=== PATIENT | male | born 1990 | race Two or more races ===

== ENCOUNTER 2017-05-23 19:22 | Inpatient (IN) | payer SELFPAY ==
[~2017-05-23] VITALS: Ht 175.3 cm; Wt 99.3 kg
[2017-05-23 19:49] LABS: BASO # 0.2 x10^3/uL (0.0-0.2); BASO % 2 % (0-3); EOS % 7 % (0-3); LYMPH # 2.6 x10^3/uL (1.0-4.8); LYMPH % 25 % (24-48); MEAN CORPUSCULAR HEMOGLOBIN 19 pg (25-35); MEAN CORPUSCULAR HGB CONC 32 g/dL (31-37); MEAN CORPUSCULAR VOLUME 58 fL (79-100); MONO % 6 % (0-9); NEUT % 60 % (31-73); PLATELET COUNT 365 x10^3/uL (140-400); RED BLOOD COUNT 3.26 x10^6/uL (4.30-5.70); RED CELL DISTRIBUTION WIDTH 18.5 % (11.5-14.5); WHITE BLOOD COUNT 10.3 x10^3/uL (4.0-11.0)
[2017-05-23 19:50] LABS: BILIRUBIN,URINE NEGATIVE (NEG); GLUCOSE,URINE NEGATIVE (NEG); NITRITE,URINE NEGATIVE (NEG); PH,URINE 6.5; PROTEIN,URINE NEGATIVE (NEG-TRACE); UROBILINOGEN,URINE 0.2 mg/dL (0.2 mg/dL)
[2017-05-23 19:54] LABS: HEMOGLOBIN 6.1 g/dL (13.0-17.5)
[2017-05-23 19:58] LABS: CALCIUM 8.2 mg/dL (8.5-10.1); CREATININE 0.9 mg/dL (0.7-1.3); GFR 100.5; POTASSIUM 3.8 mmol/L (3.5-5.1); RBC,URINE 0 /HPF (0-2); WBC,URINE 0 /HPF (0-4)
[2017-05-23 19:59] LABS: BACTERIA,URINE 0 /HPF (0-FEW); SQUAMOUS EPITHELIAL CELL,UR OCC /LPF
[2017-05-23 20:00] LABS: INR 1.1 (0.8-1.1); PROTHROMBIN TIME PATIENT 13.4 SEC (11.7-14.0)
[2017-05-23 20:04] LABS: ALBUMIN 3.7 g/dL (3.4-5.0); ALBUMIN/GLOBULIN RATIO 0.9 (1.0-1.7); TOTAL BILIRUBIN 0.3 mg/dL (0.2-1.0); TOTAL PROTEIN 7.9 g/dL (6.4-8.2)
[2017-05-23 20:15] LABS: PLT ESTIMATE ADEQUATE (ADEQUATE)
[2017-05-23] MEDS ORDERED: IV NORMAL SALINE 500ML BAG 500 ML IV ONE (20:15)
[2017-05-23 20:17] LABS: HYPOCHROMIA MARKED; MICROCYTOSIS MARKED; POLYCHROMASIA MOD
[2017-05-23] MEDS: IV NORMAL SALINE 1000ML BAG 1,000 ML IV SCH (21:16)
--- NOTE | 2017-05-23 21:44 | PHYS DOC ---
Past Medical History Past Medical History: No Pertinent History Past Surgical History: Other Additional Past Surgical Histo: Left hand Alcohol Use: Occasionally Drug Use: None Adult General Chief Complaint Chief Complaint: OTHER COMPLAINTS HPI HPI Patient is a 26 year old male who presents ambulatory to the ED with the complaint of abnormal labs. 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 Patient states that he has been having bright red blood per rectum every day for about 2 months. He has not gone to the doctor because he was scared to. He went to the doctor today and had labs drawn and told him there was a problem with his blood, he would need to have a blood transfusion, and he should come to the hospital. This happened once before about 6 months ago that then didn't come back until 2 months ago. He has bright red blood and blood clots per rectum daily. He has no abdominal pain or rectal pain. He has nausea but no vomiting. He feels faint especially when he is working. He denies any chronic medical problems. He does not take any medications. He does not have a primary care doctor, he went to a local urgent care I believe. Review of Systems Review of Systems Constitutional: Denies fever or chills [] HENT: Denies nasal congestion or sore throat [] Respiratory: Denies cough or shortness of breath [] Cardiovascular: Denies chest pain GI: As in history of present illness : Denies dysuria or hematuria [] Musculoskeletal: Denies back pain or joint pain [] Integument: Denies rash or skin lesions [] Neurologic: Denies headache, focal weakness or sensory changes [] Allergies Allergies Allergies Coded Allergies Type Severity Reaction Last Updated Verified No Known Drug Allergies 05/23/17 No Physical Exam Physical Exam Constitutional: Well developed, well nourished, no acute distress, non-toxic appearance. Alert, mentating normally, warm and dry. HENT: Normocephalic, atraumatic, bilateral external ears normal, nose normal. [ ] Eyes: conjunctiva normal, no discharge. [] Neck: Normal range of motion, no stridor. [] Cardiovascular:Heart rate regular rhythm, no murmur [] Lungs & Thorax: Bilateral breath sounds clear to auscultation [] Abdomen: Bowel sounds normal, soft, nondistended, no tenderness, no masses, no pulsatile masses. [] Skin: Warm, dry, no erythema, no rash. [] Extremities: No tenderness, no cyanosis, no clubbing, ROM intact, no edema. [] Neurologic: Alert and oriented X 3, normal motor function, normal sensory function, no focal deficits noted. [] Current Patient Data Vital Signs Vital Signs Date Time Temp Pulse Resp B/P (MAP) Pulse Ox O2 Delivery O2 Flow Rate FiO2 05/23/17 19:30 98.4 94 18 155/90 (111) 99 Room Air 98.4 Lab Values Laboratory Tests Test 05/23/17 19:34 White Blood Count 10.3 x10^3/uL (4.0-11.0) Red Blood Count 3.26 x10^6/uL (4.30-5.70) L Hemoglobin 6.1 g/dL (13.0-17.5) *L Hematocrit 18.8 % (39.0-53.0) *L Mean Corpuscular Volume 58 fL (79-100) L Mean Corpuscular Hemoglobin 19 pg (25-35) L Mean Corpuscular Hemoglobin Concent 32 g/dL (31-37) Red Cell Distribution Width 18.5 % (11.5-14.5) H Platelet Count 365 x10^3/uL (140-400) Neutrophils (%) (Auto) 60 % (31-73) Lymphocytes (%) (Auto) 25 % (24-48) Monocytes (%) (Auto) 6 % (0-9) Eosinophils (%) (Auto) 7 % (0-3) H Basophils (%) (Auto) 2 % (0-3) Neutrophils # (Auto) 6.2 x10^3uL (1.8-7.7) Lymphocytes # (Auto) 2.6 x10^3/uL (1.0-4.8) Monocytes # (Auto) 0.6 x10^3/uL (0.0-1.1) Eosinophils # (Auto) 0.7 x10^3/uL (0.0-0.7) Basophils # (Auto) 0.2 x10^3/uL (0.0-0.2) Platelet Estimate Adequate (ADEQUATE) Polychromasia Mod Hypochromasia Marked Microcytosis Marked Prothrombin Time 13.4 SEC (11.7-14.0) Prothrombin Time INR 1.1 (0.8-1.1) PTT 22 SEC (24-38) L Urine Collection Type Unknown Urine Color Yellow Urine Clarity Clear Urine pH 6.5 Urine Specific [place] <=1.005 Urine Protein Negative mg/dL (NEG-TRACE) Urine Glucose (UA) Negative mg/dL (NEG) Urine Ketones (Stick) Negative mg/dL (NEG) Urine Blood Negative (NEG) Urine Nitrite Negative (NEG) Urine Bilirubin Negative (NEG) Urine Urobilinogen Dipstick 0.2 mg/dL (0.2 mg/dL) Urine Leukocyte Esterase Negative (NEG) Urine RBC 0 /HPF (0-2) Urine WBC 0 /HPF (0-4) Urine Squamous Epithelial Cells Occ /LPF Urine Bacteria 0 /HPF (0-FEW) Sodium Level 137 mmol/L (136-145) Potassium Level 3.8 mmol/L (3.5-5.1) Chloride Level 101 mmol/L (98-107) Carbon Dioxide Level 26 mmol/L (21-32) Anion Gap 10 (6-14) Blood Urea Nitrogen 10 mg/dL (8-26) Creatinine 0.9 mg/dL (0.7-1.3) Estimated GFR (Cockcroft-Gault) 100.5 BUN/Creatinine Ratio 11 (6-20) Glucose Level 127 mg/dL (70-99) H Calcium Level 8.2 mg/dL (8.5-10.1) L Total Bilirubin 0.3 mg/dL (0.2-1.0) Aspartate Amino Transferase (AST) 24 U/L (15-37) Alanine Aminotransferase (ALT) 43 U/L (16-63) Alkaline Phosphatase 114 U/L (46-116) Total Protein 7.9 g/dL (6.4-8.2) Albumin 3.7 g/dL (3.4-5.0) Albumin/Globulin Ratio 0.9 (1.0-1.7) L Laboratory Tests 05/23/17 19:34 Laboratory Tests 05/23/17 19:34 EKG EKG [] Radiology/Procedures Radiology/Procedures [] Course & Med Decision Making Course & Med Decision Making Pertinent Labs and Imaging studies reviewed. (See chart for details) 26-year-old healthy male presents to the ED with a 2 month history of bright red blood per rectum and abnormal labs. In the ED, his hemoglobin is 6.1. White count, platelets, chemistries are all unremarkable. The patient does give a history of active rectal bleeding so I believe he should be transfused. I discussed transfusion with the patient and consented him for blood transfusion. I ordered 2 units. I believe his bleeding is lower GI so a PPI will not be of benefit. There is no indication at this time of what would be causing his bleeding. Patient is stable for admission to [facility] floor. I discussed the case with who will admit the patient. I wrote bridge orders. [] Dragon Disclaimer Dragon Disclaimer This electronic medical record was generated, in whole or in part, using a voice recognition dictation system. Departure Departure Impression: Primary Impression: Lower GI bleed Additional Impression: Anemia due to blood loss Disposition: ADMITTED INPATIENT Admitting Physician: Yolanda Randall Condition: STABLE Referrals: UNKNOWN PCP NAME (PCP) Problem Qualifiers GEOVANY FRENCH MD May 23, 2017 21:44
[2017-05-23 23:00] VITALS: BP 120/72
[2017-05-23 23:09] VITALS: BP 120/72
[2017-05-24] VITALS (15 sets, daily range): BP systolic 114–138; BP diastolic 66–80
--- NOTE | 2017-05-24 06:51 | EKG ---
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
[2017-05-24] MEDS: IV NORMAL SALINE 1000ML BAG 1,000 ML IV SCH ×2 (06:54→16:09)
[2017-05-24 07:30] LABS: BASO # 0.1 x10^3/uL (0.0-0.2); BASO % 1 % (0-3); EOS % 10 % (0-3); HEMATOCRIT 23.9 % (39.0-53.0); HEMOGLOBIN 7.3 g/dL (13.0-17.5); LYMPH # 1.6 x10^3/uL (1.0-4.8); LYMPH % 23 % (24-48); MEAN CORPUSCULAR HEMOGLOBIN 19 pg (25-35); MEAN CORPUSCULAR HGB CONC 31 g/dL (31-37); MEAN CORPUSCULAR VOLUME 63 fL (79-100); MONO % 8 % (0-9); NEUT % 58 % (31-73); PLATELET COUNT 296 x10^3/uL (140-400); RED CELL DISTRIBUTION WIDTH 24.2 % (11.5-14.5); WHITE BLOOD COUNT 7.1 x10^3/uL (4.0-11.0)
[2017-05-24 07:44] LABS: CALCIUM 8.6 mg/dL (8.5-10.1); CREATININE 0.9 mg/dL (0.7-1.3); GFR 100.5
[2017-05-24 07:57] LABS: HEMATOCRIT 18.8 % (39.0-53.0)
[2017-05-24] MEDS ORDERED: ONDANSETRON PF 4 MG/2 ML VIAL. IV PRN (08:45)
[2017-05-24] MEDS ORDERED: ACETAMINOPHEN 500 MG TABLET PO PRN (08:45)
--- NOTE | 2017-05-24 08:57 | PDOC2 ---
GI CONSULT Reason For Consult: Lower GI Bleed HPI: HPI: 26 y/o male admitted through the ER. Speaks British primarily but Niuean language skills adequate for interview. 2 month h/o rectal bleeding, red mixed w/ black blood, occurs several times daily, amount varies. Denies n/v, reflux/ heartburn, dysphagia, abd pain, change in appetite, weight loss, constipation, diarrhea. Has felt a little dizzy w/o CP or SOA. No NSAID use. No previous EGD or colonoscopy. Drinks 24 beers one day each week. 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 Labs: Hgb 6.1 now 7.3 s/p transfusion 2 units pRBCs. Note low indices w/ elevated RDW. CMP unremarkable except for elevated glucose (127, 111). INR WNL. Vitals stable, has been NPO. PMH: PMH: left hand trauma/surgery FH: Family History: No pertinent hx (denies GI cancers, IBD) Social History: Smoke: No ALCOHOL: heavy (24 beers one day each week) Drugs: None ROS: GEN: Denies fevers, chills, sweats HEENT: Denies blurred vision, sore throat CV: Denies chest pain RESP: Denies shortness of air, cough GI: Per HPI : Denies hematuria, dysuria ENDO: Denies weight changes NEURO: +dizziness MSK: Denies weakness, joint pain/swelling SKIN: Denies jaundice, pruritus Vitals: Vitals: Vital Signs Date Time Temp Pulse Resp B/P (MAP) Pulse Ox O2 Delivery O2 Flow Rate FiO2 05/24/17 07:00 97.9 74 18 121/72 (88) 99 Room Air 97.9 Labs: Labs: Laboratory Tests Test 05/23/17 19:34 05/24/17 07:15 White Blood Count 10.3 x10^3/uL (4.0-11.0) 7.1 x10^3/uL (4.0-11.0) Red Blood Count 3.26 x10^6/uL (4.30-5.70) 3.80 x10^6/uL (4.30-5.70) Hemoglobin 6.1 g/dL (13.0-17.5) 7.3 g/dL (13.0-17.5) Hematocrit 18.8 % (39.0-53.0) 23.9 % (39.0-53.0) Mean Corpuscular Volume 58 fL (79-100) 63 fL (79-100) Mean Corpuscular Hemoglobin 19 pg (25-35) 19 pg (25-35) Mean Corpuscular Hemoglobin Concent 32 g/dL (31-37) 31 g/dL (31-37) Red Cell Distribution Width 18.5 % (11.5-14.5) 24.2 % (11.5-14.5) Platelet Count 365 x10^3/uL (140-400) 296 x10^3/uL (140-400) Neutrophils (%) (Auto) 60 % (31-73) 58 % (31-73) Lymphocytes (%) (Auto) 25 % (24-48) 23 % (24-48) Monocytes (%) (Auto) 6 % (0-9) 8 % (0-9) Eosinophils (%) (Auto) 7 % (0-3) 10 % (0-3) Basophils (%) (Auto) 2 % (0-3) 1 % (0-3) Neutrophils # (Auto) 6.2 x10^3uL (1.8-7.7) 4.1 x10^3uL (1.8-7.7) Lymphocytes # (Auto) 2.6 x10^3/uL (1.0-4.8) 1.6 x10^3/uL (1.0-4.8) Monocytes # (Auto) 0.6 x10^3/uL (0.0-1.1) 0.5 x10^3/uL (0.0-1.1) Eosinophils # (Auto) 0.7 x10^3/uL (0.0-0.7) 0.7 x10^3/uL (0.0-0.7) Basophils # (Auto) 0.2 x10^3/uL (0.0-0.2) 0.1 x10^3/uL (0.0-0.2) Platelet Estimate Adequate (ADEQUATE) Polychromasia Mod Hypochromasia Marked Microcytosis Marked Prothrombin Time 13.4 SEC (11.7-14.0) Prothromb Time International Ratio 1.1 (0.8-1.1) Activated Partial Thromboplast Time 22 SEC (24-38) Urine Collection Type Unknown Urine Color Yellow Urine Clarity Clear Urine pH 6.5 Urine Specific [place] <=1.005 Urine Protein Negative mg/dL (NEG-TRACE) Urine Glucose (UA) Negative mg/dL (NEG) Urine Ketones (Stick) Negative mg/dL (NEG) Urine Blood Negative (NEG) Urine Nitrite Negative (NEG) Urine Bilirubin Negative (NEG) Urine Urobilinogen Dipstick 0.2 mg/dL (0.2 mg/dL) Urine Leukocyte Esterase Negative (NEG) Urine RBC 0 /HPF (0-2) Urine WBC 0 /HPF (0-4) Urine Squamous Epithelial Cells Occ /LPF Urine Bacteria 0 /HPF (0-FEW) Sodium Level 137 mmol/L (136-145) 138 mmol/L (136-145) Potassium Level 3.8 mmol/L (3.5-5.1) 4.0 mmol/L (3.5-5.1) Chloride Level 101 mmol/L (98-107) 103 mmol/L (98-107) Carbon Dioxide Level 26 mmol/L (21-32) 29 mmol/L (21-32) Anion Gap 10 (6-14) 6 (6-14) Blood Urea Nitrogen 10 mg/dL (8-26) 9 mg/dL (8-26) Creatinine 0.9 mg/dL (0.7-1.3) 0.9 mg/dL (0.7-1.3) Estimated GFR (Cockcroft-Gault) 100.5 100.5 BUN/Creatinine Ratio 11 (6-20) Glucose Level 127 mg/dL (70-99) 111 mg/dL (70-99) Calcium Level 8.2 mg/dL (8.5-10.1) 8.6 mg/dL (8.5-10.1) Total Bilirubin 0.3 mg/dL (0.2-1.0) Aspartate Amino Transf (AST/SGOT) 24 U/L (15-37) Alanine Aminotransferase (ALT/SGPT) 43 U/L (16-63) Alkaline Phosphatase 114 U/L (46-116) Total Protein 7.9 g/dL (6.4-8.2) Albumin 3.7 g/dL (3.4-5.0) Albumin/Globulin Ratio 0.9 (1.0-1.7) Allergies: Coded Allergies: No Known Drug Allergies (Unverified , 05/23/17) Medications: Current Medications Medications (Trade) Dose Ordered Sig/Santino Route PRN Reason Start Time Stop Time Status Last Admin Dose Admin Sodium Chloride 500 ml @ 500 mls/hr 1X ONCE IV 05/23/17 20:15 05/23/17 21:14 DC 05/23/17 20:07 Sodium Chloride 1,000 ml @ 100 mls/hr Q10H IV 05/23/17 20:54 05/24/17 20:53 05/23/17 21:16 Imaging: Imaging: - PE: GEN: NAD HEENT: Atraumatic, PERRL LUNGS: CTAB anteriorly HEART: RRR ABD: NABS, S/ND/NT EXTREMITY: No edema SKIN: No rashes, no jaundice NEURO/PSYCH: A & O 3 A/P: A/P: Rectal bleeding w/ microcytic anemia -onset 2 months ago, several times daily, red and black Alcohol use -- D/w Dr. Bajwa - ?colitis Will plan for CT A/P today, then prep for colonoscopy w/ EGD tomorrow morning r/ o upper and lower GI source for anemia. Will start empiric IV H2 vipul and transfuse another unit pRBCs. Encourage to minimize alcohol use. LEXI ADHIKARI May 24, 2017 08:57
--- NOTE | 2017-05-24 08:59 | PDOC1 ---
History and Physical Date of Admission Date of Admission DATE: 05/24/17 TIME: 08:45 Identification/Chief Complaint Chief Complaint Bloody stools Problems: Source Source: Caregiver, Chart review, Patient History of Present Illness History of Present Illness 26 male, some lebanese, 2 mos hx of bright red bloody stools, no abd pain, no emesis, no fevers, Never happened before, no hx colon CA in family, not on any blood thinners or NSAIDs, Hgb on admit was 6, got transfused and now hgb 7, MCV 60s, Denies lightheadedness, weakness or fatigue. CLaims feels better. HAs been NPO, IVF running, NOT hypotensive. Past Medical History Cardiovascular: No pertinent hx Pulmonary: No pertinent hx GI: No pertinent hx Heme/Onc: No pertinent hx Hepatobiliary: No pertinent hx Psych: No pertinent hx Rheumatologic: No pertinent hx Infectious disease: No pertinent hx ENT: No pertinent hx Renal/: No pertinent hx Endocrine: No pertinent hx Dermatology: No pertinent hx Past Surgical History Past Surgical History: No pertinent history Family History Family History: Family History Unknown Social History Smoke: No ALCOHOL: none Drugs: None Current Problem List Problem List Problems Medical Problems: (1) Anemia due to blood loss Status: Acute (2) Lower GI bleed Status: Acute Problems: Current Medications Current Medications Current Medications Sodium Chloride 500 ml @ 500 mls/hr 1X ONCE IV Last administered on 05/23/17 20:07; Start 05/23/17 at 20:15; Stop 05/23/17 at 21:14; Status DC Sodium Chloride 1,000 ml @ 100 mls/hr Q10H IV Last administered on 05/23/17 21 :16; Start 05/23/17 at 20:54; Stop 05/24/17 at 20:53 Allergies Allergies: Coded Allergies: No Known Drug Allergies (Unverified , 05/23/17) ROS General: No: Chills, Night Sweats, Fatigue, Malaise, Appetite, Other PSYCHOLOGICAL ROS: No: Anxiety, Behavioral Disorder, Concentration difficultie , Decreased libido, Depression, Disorientation, Hallucinations, Hostility, Irritablity, Memory difficulties, Mood Swings, Obsessive thoughts, Physical abuse, Sexual abuse, Sleep disturbances, Suicidal ideation, Other Eyes: No Blurry vision, No Decreased vision, No Double vision, No Dry eyes, No Excessive tearing, No Eye Pain, No Itchy Eyes, No Loss of vision, No Photophobia , No Scotomata, No Uses contacts, No Uses glasses, No Other HEENT: No: Heacaches, Visual Changes, Hearing change, Nasal congestion, Nasal discharge, Oral lesions, Sinus pain, Sore Throat, Epistaxis, Sneezing, Snoring, Tinnitus, Vertigo, Vocal changes, Other ALLERGY AND IMMUNOLOGY: No: Hives, Insect Bite Sensitivity, Itchy/Watery Eyes, Nasal Congestion, Post Nasal Drip, Seasonal Allergies, Other Hematological and Lymphatic: No: Bleeding Problems, Blood Clots, Blood Transfusions, Brusing, Night Sweats, Pallor, Swollen Lymph Nodes, Other ENDOCRINE: No: Breast Changes, Galactorrhea, Hair Pattern Changes, Hot Flashes , Malaise/lethargy, Mood Swings, Palpitations, Polydipsia/polyuria, Skin Changes , Temperature Intolerance, Unexpected Weight Changes, Other Breast: No New/Changing Breast Lumps, No Nipple changes, No Nipple discharge, No Other Respiratory: No: Cough, Hemoptysis, Orthopnea, Pleuritic Pain, Shortness of breath, SOB with excertion, Sputum Changes, Stridor, Tachypnea, Wheezing, Other Cardiovascular: No Chest Pain, No Palpitations, No Orthopnea, No Paroxysmal Noc. Dyspnea, No Edema, No Lt Headedness, No Other Gastrointestinal: Yes Diarrhea, Yes Hematochezia Genitourinary: No Dysuria, No Frequency, No Incontinence, No Hematuria, No Retention, No Discharge, No Urgency, No Pain, No Flank Pain, No Other, No , No , No , No , No , No , No Musculoskeletal: No Gait Disturbance, No Joint Pain, No Joint Stiffness, No Joint Swelling, No Muscle Pain, No Muscular Weakness, No Pain In:, No Swelling In:, No Other Neurological: No Behavorial Changes, No Bowel/Bladder ControlChng, No Confusion , No Dizziness, No Gait Disturbance, No Headaches, No Impaired Coord/balance, No Memory Loss, No Numbness/Tingling, No Seizures, No Speech Problems, No Tremors, No Visual Changes, No Weakness, No Other Skin: No Dry Skin, No Eczema, No Hair Changes, No Lumps, No Mole Changes, No Mottling, No Nail Changes, No Pruritus, No Rash, No Skin Lesion Changes, No Other, No Acne Physical Exam General: Alert, Oriented X3, Cooperative, No acute distress HEENT: Atraumatic, PERRLA, EOMI Lungs: Clear to auscultation, Normal air movement Heart: S1S2, RRR, no thrills, no rubs, no gallops, no murmurs Cardiovascular: S1, S2 Breasts: Normal Abdomen: Soft, No tenderness, No hepatosplenomegaly, No masses Male Genitals Exam: normal genitalia, normal prostate Rectal Exam: not examined Extremities: No clubbing, No cyanosis, No edema, Normal pulses, No tenderness/ swelling Skin: No rashes, No breakdown, No significant lesion Neuro: Normal gait, Normal speech, Strength at 5/5 X4 ext, Normal tone, Sensation intact, Cranial nerves 3-12 NL, Reflexes 2+ Psych/Mental Status: Mental status NL, Mood NL Vitals Vitals Vital Signs Date Time Temp Pulse Resp B/P (MAP) Pulse Ox O2 Delivery O2 Flow Rate FiO2 05/24/17 07:00 97.9 74 18 121/72 (88) 99 Room Air 97.9 Labs Labs Laboratory Tests Test 05/23/17 19:34 05/24/17 07:15 White Blood Count 10.3 x10^3/uL (4.0-11.0) 7.1 x10^3/uL (4.0-11.0) Red Blood Count 3.26 x10^6/uL (4.30-5.70) 3.80 x10^6/uL (4.30-5.70) Hemoglobin 6.1 g/dL (13.0-17.5) 7.3 g/dL (13.0-17.5) Hematocrit 18.8 % (39.0-53.0) 23.9 % (39.0-53.0) Mean Corpuscular Volume 58 fL (79-100) 63 fL (79-100) Mean Corpuscular Hemoglobin 19 pg (25-35) 19 pg (25-35) Mean Corpuscular Hemoglobin Concent 32 g/dL (31-37) 31 g/dL (31-37) Red Cell Distribution Width 18.5 % (11.5-14.5) 24.2 % (11.5-14.5) Platelet Count 365 x10^3/uL (140-400) 296 x10^3/uL (140-400) Neutrophils (%) (Auto) 60 % (31-73) 58 % (31-73) Lymphocytes (%) (Auto) 25 % (24-48) 23 % (24-48) Monocytes (%) (Auto) 6 % (0-9) 8 % (0-9) Eosinophils (%) (Auto) 7 % (0-3) 10 % (0-3) Basophils (%) (Auto) 2 % (0-3) 1 % (0-3) Neutrophils # (Auto) 6.2 x10^3uL (1.8-7.7) 4.1 x10^3uL (1.8-7.7) Lymphocytes # (Auto) 2.6 x10^3/uL (1.0-4.8) 1.6 x10^3/uL (1.0-4.8) Monocytes # (Auto) 0.6 x10^3/uL (0.0-1.1) 0.5 x10^3/uL (0.0-1.1) Eosinophils # (Auto) 0.7 x10^3/uL (0.0-0.7) 0.7 x10^3/uL (0.0-0.7) Basophils # (Auto) 0.2 x10^3/uL (0.0-0.2) 0.1 x10^3/uL (0.0-0.2) Platelet Estimate Adequate (ADEQUATE) Polychromasia Mod Hypochromasia Marked Microcytosis Marked Prothrombin Time 13.4 SEC (11.7-14.0) Prothromb Time International Ratio 1.1 (0.8-1.1) Activated Partial Thromboplast Time 22 SEC (24-38) Urine Collection Type Unknown Urine Color Yellow Urine Clarity Clear Urine pH 6.5 Urine Specific [place] <=1.005 Urine Protein Negative mg/dL (NEG-TRACE) Urine Glucose (UA) Negative mg/dL (NEG) Urine Ketones (Stick) Negative mg/dL (NEG) Urine Blood Negative (NEG) Urine Nitrite Negative (NEG) Urine Bilirubin Negative (NEG) Urine Urobilinogen Dipstick 0.2 mg/dL (0.2 mg/dL) Urine Leukocyte Esterase Negative (NEG) Urine RBC 0 /HPF (0-2) Urine WBC 0 /HPF (0-4) Urine Squamous Epithelial Cells Occ /LPF Urine Bacteria 0 /HPF (0-FEW) Sodium Level 137 mmol/L (136-145) 138 mmol/L (136-145) Potassium Level 3.8 mmol/L (3.5-5.1) 4.0 mmol/L (3.5-5.1) Chloride Level 101 mmol/L (98-107) 103 mmol/L (98-107) Carbon Dioxide Level 26 mmol/L (21-32) 29 mmol/L (21-32) Anion Gap 10 (6-14) 6 (6-14) Blood Urea Nitrogen 10 mg/dL (8-26) 9 mg/dL (8-26) Creatinine 0.9 mg/dL (0.7-1.3) 0.9 mg/dL (0.7-1.3) Estimated GFR (Cockcroft-Gault) 100.5 100.5 BUN/Creatinine Ratio 11 (6-20) Glucose Level 127 mg/dL (70-99) 111 mg/dL (70-99) Calcium Level 8.2 mg/dL (8.5-10.1) 8.6 mg/dL (8.5-10.1) Total Bilirubin 0.3 mg/dL (0.2-1.0) Aspartate Amino Transf (AST/SGOT) 24 U/L (15-37) Alanine Aminotransferase (ALT/SGPT) 43 U/L (16-63) Alkaline Phosphatase 114 U/L (46-116) Total Protein 7.9 g/dL (6.4-8.2) Albumin 3.7 g/dL (3.4-5.0) Albumin/Globulin Ratio 0.9 (1.0-1.7) Laboratory Tests Test 05/23/17 19:34 05/24/17 07:15 White Blood Count 10.3 x10^3/uL (4.0-11.0) 7.1 x10^3/uL (4.0-11.0) Red Blood Count 3.26 x10^6/uL (4.30-5.70) 3.80 x10^6/uL (4.30-5.70) Hemoglobin 6.1 g/dL (13.0-17.5) 7.3 g/dL (13.0-17.5) Hematocrit 18.8 % (39.0-53.0) 23.9 % (39.0-53.0) Mean Corpuscular Volume 58 fL (79-100) 63 fL (79-100) Mean Corpuscular Hemoglobin 19 pg (25-35) 19 pg (25-35) Mean Corpuscular Hemoglobin Concent 32 g/dL (31-37) 31 g/dL (31-37) Red Cell Distribution Width 18.5 % (11.5-14.5) 24.2 % (11.5-14.5) Platelet Count 365 x10^3/uL (140-400) 296 x10^3/uL (140-400) Neutrophils (%) (Auto) 60 % (31-73) 58 % (31-73) Lymphocytes (%) (Auto) 25 % (24-48) 23 % (24-48) Monocytes (%) (Auto) 6 % (0-9) 8 % (0-9) Eosinophils (%) (Auto) 7 % (0-3) 10 % (0-3) Basophils (%) (Auto) 2 % (0-3) 1 % (0-3) Neutrophils # (Auto) 6.2 x10^3uL (1.8-7.7) 4.1 x10^3uL (1.8-7.7) Lymphocytes # (Auto) 2.6 x10^3/uL (1.0-4.8) 1.6 x10^3/uL (1.0-4.8) Monocytes # (Auto) 0.6 x10^3/uL (0.0-1.1) 0.5 x10^3/uL (0.0-1.1) Eosinophils # (Auto) 0.7 x10^3/uL (0.0-0.7) 0.7 x10^3/uL (0.0-0.7) Basophils # (Auto) 0.2 x10^3/uL (0.0-0.2) 0.1 x10^3/uL (0.0-0.2) Platelet Estimate Adequate (ADEQUATE) Polychromasia Mod Hypochromasia Marked Microcytosis Marked Prothrombin Time 13.4 SEC (11.7-14.0) Prothromb Time International Ratio 1.1 (0.8-1.1) Activated Partial Thromboplast Time 22 SEC (24-38) Urine Collection Type Unknown Urine Color Yellow Urine Clarity Clear Urine pH 6.5 Urine Specific [place] <=1.005 Urine Protein Negative mg/dL (NEG-TRACE) Urine Glucose (UA) Negative mg/dL (NEG) Urine Ketones (Stick) Negative mg/dL (NEG) Urine Blood Negative (NEG) Urine Nitrite Negative (NEG) Urine Bilirubin Negative (NEG) Urine Urobilinogen Dipstick 0.2 mg/dL (0.2 mg/dL) Urine Leukocyte Esterase Negative (NEG) Urine RBC 0 /HPF (0-2) Urine WBC 0 /HPF (0-4) Urine Squamous Epithelial Cells Occ /LPF Urine Bacteria 0 /HPF (0-FEW) Sodium Level 137 mmol/L (136-145) 138 mmol/L (136-145) Potassium Level 3.8 mmol/L (3.5-5.1) 4.0 mmol/L (3.5-5.1) Chloride Level 101 mmol/L (98-107) 103 mmol/L (98-107) Carbon Dioxide Level 26 mmol/L (21-32) 29 mmol/L (21-32) Anion Gap 10 (6-14) 6 (6-14) Blood Urea Nitrogen 10 mg/dL (8-26) 9 mg/dL (8-26) Creatinine 0.9 mg/dL (0.7-1.3) 0.9 mg/dL (0.7-1.3) Estimated GFR (Cockcroft-Gault) 100.5 100.5 BUN/Creatinine Ratio 11 (6-20) Glucose Level 127 mg/dL (70-99) 111 mg/dL (70-99) Calcium Level 8.2 mg/dL (8.5-10.1) 8.6 mg/dL (8.5-10.1) Total Bilirubin 0.3 mg/dL (0.2-1.0) Aspartate Amino Transf (AST/SGOT) 24 U/L (15-37) Alanine Aminotransferase (ALT/SGPT) 43 U/L (16-63) Alkaline Phosphatase 114 U/L (46-116) Total Protein 7.9 g/dL (6.4-8.2) Albumin 3.7 g/dL (3.4-5.0) Albumin/Globulin Ratio 0.9 (1.0-1.7) VTE Prophylaxis Ordered VTE Prophylaxis Devices: Contraindicated VTE Pharmacological Prophylaxi: Contraindicated Assessment/Plan Assessment/Plan 1. BLoody stools likely diverticular bleed 2. ANemia of acute blood loss needing transfusion 3. 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
[2017-05-24] MEDS ORDERED: IOHEXOL 300 MG/ML 75 ML VIAL ONE (09:50)
[2017-05-24] MEDS ORDERED: IOHEXOL 240 MG/ML 50ML VIAL. ONE (09:51)
--- NOTE | 2017-05-24 11:24 | RAD ---
Indication lower abdominal pain. Axial images of the abdomen and pelvis were obtained. Both IV and oral contrast were administered. 75 cc of Omnipaque 300 was administered intravenously. No prior imaging is available. A significant finding at the lung bases is not seen. There is a tiny, 2 mm, nodule in the left lower lobe probably incidental and a 26-year-old. There is mild fatty infiltration of the liver. A dominant mass in the liver is not seen. There is an area of increased vascularity in the right lobe of the liver. This is incompletely evaluated on this exam but is probably incidental. The spleen appears unremarkable and the gallbladder is grossly normal. No pancreatic abnormality is seen. No adrenal anomalies are seen and the kidneys appear normal. An acute finding in the abdomen is not seen. In the pelvis there is no significant diverticular disease seen associated with the large bowel. No acute finding mass or inflammatory process is seen in the pelvis. IMPRESSION: No definite acute finding seen in the abdomen or pelvis. Small pulmonary nodule in the left lower lobe likely incidental in 26-year-old. Area of slightly increased vascularity in the right lobe of the liver is probably incidental but not completely evaluated on this study. Clinical correlation advised. Mild fatty infiltration of the liver PQRS Compliance Statement: One or more of the following individualized dose reduction techniques were utilized for this examination: 1. Automated exposure control 2. Adjustment of the mA and/or kV according to patient size 3. Use of iterative reconstruction technique
[2017-05-24] MEDS ORDERED: POLYETHYLENE GLYCOL 3350 238 GM POWDER PO ONE (16:00)
[2017-05-24] MEDS ORDERED: FAMOTIDINE 20 MG/2 ML VIAL IVP SCH (21:00)
[2017-05-25 03:11] VITALS: BP 124/69
--- NOTE | 2017-05-25 06:34 | ACF ---
Admission Forms Criteria GASTROINTESTINAL BLEEDING Clinical Indications for Inpatient Care (Place 'X' for any and all applicable criteria): Ongoing inpatient care may be indicated for gastrointestinal bleeding with ANY ONE of the following (4)(20)(21)(22)(23)(24): [X ]I. Active bleeding (eg, fresh voluminous blood in emesis or nasogastric aspirate, or per rectum) [ ]II. Hemodynamic instability [ ]III. Anticoagulation therapy or coagulopathy ((eg, advanced liver disease, irreversible anticoagulation) [ ]IV. Ischemic colitis (22) [ ]V. Endoscopy showing arterial bleeding, adherent clot, nonbleeding visible vessel, varices, flat red spots, ulcer size greater than 2 cm, or portal hypertensive gastropathy [ ]. High-risk low platelet count [ ]VII. Anemia requiring inpatient care as indicated by ANY ONE of the following a)[ ] Cognitive impairment b)[ ] Syncope c)[ ] Heart failure d)[ ] Chest pain e)[ ] Dyspnea f)[ ] Other findings suggesting inadequate perfusion (eg, peripheral or myocardial ischemia, end organ dysfunction) [ ]VIII. High-risk low platelet count [ ]IX. Suspected variceal cause of bleeding as indicated by ANY ONE of the following(27)(28): a)[ ] Known varices b)[ ] Hepatomegaly or splenomegaly c)[ ] Ascites d)[ ] Jaundice or scleral icterus e)[ ] History of liver disease (eg, cirrhosis) f)[ ] Physical findings of portal hypertension (eg, caput medusa) g)[ ] Comorbid disorder indicating risk for portal vein thrombosis (eg , abdominal surgery, sepsis, shock, exchange transfusion, prior umbilical vein catheterization) Extended stay may be needed until ALL of the following are present(20)(38)(47): [ ]a) Hemodynamic stability [ ]b) No evidence of active bleeding (eg, stable Hematocrit) [ ]c) Platelet count, prothrombin time, and partial thromboplastin time acceptable for next level of care [ ]d) Surgical or other acute intervention not needed [ ]e) Oral hydration and diet tolerated The original [employer] content created by Katty [employer] has been revised. The portions of the content which have been revised are identified through the use of italic text or in bold, and [employer] has neither reviewed nor approved the modified material. All other unmodified content is copyright [facility]. Please see references footnoted in the original [facility] edition 2016 Admission Criteria Met?: Yes YUMIKO HARDY May 25, 2017 06:34
[2017-05-25 06:43] LABS: HEMATOCRIT 26.3 % (39.0-53.0); HEMOGLOBIN 8.3 g/dL (13.0-17.5)
[2017-05-25 07:00] VITALS: BP 145/68
[2017-05-25] MEDS ORDERED: LIDOCAINE 1% 1 ML SYRINGE. ID PRN (07:00)
[2017-05-25] MEDS ORDERED: IV RINGERS,LACTATED 1000ML 1,000 ML IV SCH (07:00)
[2017-05-25] MEDS ORDERED: MORPHINE SULFATE 2 MG/ML DISP.SYRIN. IV PRN (07:00)
[2017-05-25] MEDS ORDERED: ONDANSETRON PF 4 MG/2 ML VIAL. IV PRN (07:00)
[2017-05-25] MEDS ORDERED: fentaNYL PF VIAL 100 MCG/2 ML VIAL IV PRN ×2 (07:00)
[2017-05-25] MEDS ORDERED: HYDROmorphone 2 MG/ML VIAL IV PRN (07:00)
[2017-05-25] MEDS ORDERED: PROCHLORPERAZINE 10 MG/2 ML VIAL. IV PRN (07:00)
--- NOTE | 2017-05-25 09:35 | PDOC ---
PROGRESS NOTES Chief Complaint Chief Complaint 1. BLoody stools POA, resolved 2. NO evidence diverticulosis on CT 3. ANemia of acute blood loss needing transfusion 4. Microcytic anemia 5. Occ etoh History of Present Illness History of Present Illness CT abd reviewed, otherwise UR Agree with GI transfusing 1 more unit PRBC yesterday HGb up to 8 today NO more re bleeds since admission Wants to go home if C scope and EGD neg today PLAN: EGD and c scope later Has been NPO OK by me to dc later if above tests neg if ok with GI Vitals Vitals Vital Signs Date Time Temp Pulse Resp B/P (MAP) Pulse Ox O2 Delivery O2 Flow Rate FiO2 05/25/17 08:00 Room Air 05/25/17 07:00 97.6 70 18 145/68 (93) 97 97.6 Physical Exam General: Alert, Oriented X3, Cooperative, No acute distress Abdomen: Soft, No tenderness, No hepatosplenomegaly, No masses Extremities: No clubbing, No cyanosis, No edema, Normal pulses, No tenderness/ swelling Skin: No rashes, No breakdown, No significant lesion Labs LABS Laboratory Tests Test 05/25/17 06:00 Hemoglobin 8.3 g/dL (13.0-17.5) Hematocrit 26.3 % (39.0-53.0) Mean Corpuscular Hemoglobin Concent 32 g/dL (31-37) Review of Systems Review of Systems denies 14 pt reviewed Assessment and Plan Assessmemt and Plan Problems Medical Problems: (1) Anemia due to blood loss Status: Acute (2) Lower GI bleed Status: Acute Problems: Comment Review of Relevant I have reviewed the following items sundar (where applicable) has been applied. Labs Laboratory Tests Test 05/23/17 19:34 05/24/17 07:15 05/25/17 06:00 White Blood Count 10.3 x10^3/uL (4.0-11.0) 7.1 x10^3/uL (4.0-11.0) Red Blood Count 3.26 x10^6/uL (4.30-5.70) 3.80 x10^6/uL (4.30-5.70) Hemoglobin 6.1 g/dL (13.0-17.5) 7.3 g/dL (13.0-17.5) 8.3 g/dL (13.0-17.5) Hematocrit 18.8 % (39.0-53.0) 23.9 % (39.0-53.0) 26.3 % (39.0-53.0) Mean Corpuscular Volume 58 fL (79-100) 63 fL (79-100) Mean Corpuscular Hemoglobin 19 pg (25-35) 19 pg (25-35) Mean Corpuscular Hemoglobin Concent 32 g/dL (31-37) 31 g/dL (31-37) 32 g/dL (31-37) Red Cell Distribution Width 18.5 % (11.5-14.5) 24.2 % (11.5-14.5) Platelet Count 365 x10^3/uL (140-400) 296 x10^3/uL (140-400) Neutrophils (%) (Auto) 60 % (31-73) 58 % (31-73) Lymphocytes (%) (Auto) 25 % (24-48) 23 % (24-48) Monocytes (%) (Auto) 6 % (0-9) 8 % (0-9) Eosinophils (%) (Auto) 7 % (0-3) 10 % (0-3) Basophils (%) (Auto) 2 % (0-3) 1 % (0-3) Neutrophils # (Auto) 6.2 x10^3uL (1.8-7.7) 4.1 x10^3uL (1.8-7.7) Lymphocytes # (Auto) 2.6 x10^3/uL (1.0-4.8) 1.6 x10^3/uL (1.0-4.8) Monocytes # (Auto) 0.6 x10^3/uL (0.0-1.1) 0.5 x10^3/uL (0.0-1.1) Eosinophils # (Auto) 0.7 x10^3/uL (0.0-0.7) 0.7 x10^3/uL (0.0-0.7) Basophils # (Auto) 0.2 x10^3/uL (0.0-0.2) 0.1 x10^3/uL (0.0-0.2) Platelet Estimate Adequate (ADEQUATE) Polychromasia Mod Hypochromasia Marked Microcytosis Marked Prothrombin Time 13.4 SEC (11.7-14.0) Prothromb Time International Ratio 1.1 (0.8-1.1) Activated Partial Thromboplast Time 22 SEC (24-38) Urine Collection Type Unknown Urine Color Yellow Urine Clarity Clear Urine pH 6.5 Urine Specific [place] <=1.005 Urine Protein Negative mg/dL (NEG-TRACE) Urine Glucose (UA) Negative mg/dL (NEG) Urine Ketones (Stick) Negative mg/dL (NEG) Urine Blood Negative (NEG) Urine Nitrite Negative (NEG) Urine Bilirubin Negative (NEG) Urine Urobilinogen Dipstick 0.2 mg/dL (0.2 mg/dL) Urine Leukocyte Esterase Negative (NEG) Urine RBC 0 /HPF (0-2) Urine WBC 0 /HPF (0-4) Urine Squamous Epithelial Cells Occ /LPF Urine Bacteria 0 /HPF (0-FEW) Sodium Level 137 mmol/L (136-145) 138 mmol/L (136-145) Potassium Level 3.8 mmol/L (3.5-5.1) 4.0 mmol/L (3.5-5.1) Chloride Level 101 mmol/L (98-107) 103 mmol/L (98-107) Carbon Dioxide Level 26 mmol/L (21-32) 29 mmol/L (21-32) Anion Gap 10 (6-14) 6 (6-14) Blood Urea Nitrogen 10 mg/dL (8-26) 9 mg/dL (8-26) Creatinine 0.9 mg/dL (0.7-1.3) 0.9 mg/dL (0.7-1.3) Estimated GFR (Cockcroft-Gault) 100.5 100.5 BUN/Creatinine Ratio 11 (6-20) Glucose Level 127 mg/dL (70-99) 111 mg/dL (70-99) Calcium Level 8.2 mg/dL (8.5-10.1) 8.6 mg/dL (8.5-10.1) Total Bilirubin 0.3 mg/dL (0.2-1.0) Aspartate Amino Transf (AST/SGOT) 24 U/L (15-37) Alanine Aminotransferase (ALT/SGPT) 43 U/L (16-63) Alkaline Phosphatase 114 U/L (46-116) Total Protein 7.9 g/dL (6.4-8.2) Albumin 3.7 g/dL (3.4-5.0) Albumin/Globulin Ratio 0.9 (1.0-1.7) Laboratory Tests Test 05/25/17 06:00 Hemoglobin 8.3 g/dL (13.0-17.5) Hematocrit 26.3 % (39.0-53.0) Mean Corpuscular Hemoglobin Concent 32 g/dL (31-37) Medications Current Medications Sodium Chloride 500 ml @ 500 mls/hr 1X ONCE IV Last administered on 05/23/17 20:07; Start 05/23/17 at 20:15; Stop 05/23/17 at 21:14; Status DC Sodium Chloride 1,000 ml @ 100 mls/hr Q10H IV Last administered on 05/24/17 16:09; Start 05/23/17 at 20:54; Stop 05/24/17 at 20:53; Status DC Famotidine (Pepcid) 20 mg QHS IVP Last administered on 05/24/17 20:35; Start 05/24/17 at 21:00 Ondansetron HCl (Zofran) 4 mg PRN Q6HRS PRN IV NAUSEA/VOMITING; Start 05/24/17 at 08:45 Acetaminophen (Tylenol) 500 mg PRN Q6HRS PRN PO MILD PAIN / TEMP; Start at 08:45 Polyethylene Glycol (miraLAX Powder BULK BOTTLE) 238 gm 1X ONCE PO Last administered on 05/24/17 16:10; Start 05/24/17 at 16:00; Stop 05/24/17 at 16:01 ; Status DC Iohexol (Omnipaque 300 Mg/ml) 75 ml STK-MED ONCE .ROUTE ; Start 05/24/17 at 09: 50; Stop 05/24/17 at 09:51; Status DC Iohexol (Omnipaque 240 Mg/ml) 50 ml STK-MED ONCE .ROUTE ; Start 05/24/17 at 09: 51; Stop 05/24/17 at 09:52; Status DC Ondansetron HCl (Zofran) 4 mg PRN Q6HRS PRN IV NAUSEA/VOMITING; Start 05/25/17 at 07:00; Stop 05/26/17 at 06:59 Fentanyl Citrate (Fentanyl 2ml Vial) 25 mcg PRN Q5MIN PRN IV MILD PAIN; Start 05/25/17 at 07:00; Stop 05/26/17 at 06:59 Fentanyl Citrate (Fentanyl 2ml Vial) 50 mcg PRN Q5MIN PRN IV MODERATE PAIN; Start 05/25/17 at 07:00; Stop 05/26/17 at 06:59 Morphine Sulfate 1 mg PRN Q10MIN PRN IV SEVERE PAIN; Start 05/25/17 at 07:00; Stop 05/26/17 at 06:59 Ringer's Solution 1,000 ml @ 30 mls/hr Q24H IV ; Start 05/25/17 at 07:00; Stop 05/25/17 at 18:59 Lidocaine HCl 2 ml PRN 1X PRN ID PRIOR TO IV START; Start 05/25/17 at 07:00; Stop 05/26/17 at 06:59 Hydromorphone HCl (Dilaudid) 0.5 mg PRN Q10MIN PRN IV SEV PAIN, Second choice; Start 05/25/17 at 07:00; Stop 05/26/17 at 06:59 Prochlorperazine Edisylate (Compazine) 5 mg PACU PRN PRN IV NAUSEA, MRX1; Start 05/25/17 at 07:00; Stop 05/26/17 at 06:59 Vitals/I & O Vital Sign - Last 24 Hours 05/24/17 05/24/17 05/24/17 05/24/17 11:04 12:21 12:35 13:20 Temp 98.6 97.9 97.7 97.9 98.6 97.9 97.7 97.9 Pulse 75 76 69 69 Resp 18 18 18 18 B/P (MAP) 133/79 (97) 135/78 128/70 123/69 Pulse Ox 98 O2 Delivery Room Air 05/24/17 05/24/17 05/24/17 05/24/17 14:20 14:54 19:00 20:00 Temp 97.9 98.4 98.1 97.9 98.4 98.1 Pulse 68 78 79 Resp 18 18 20 B/P (MAP) 118/66 133/80 (97) 127/70 (89) Pulse Ox 98 97 O2 Delivery Room Air Room Air Room Air 05/24/17 05/25/17 05/25/17 05/25/17 23:00 03:11 07:00 08:00 Temp 98.2 97.6 97.6 98.2 97.6 97.6 Pulse 74 67 70 Resp 20 20 18 B/P (MAP) 138/70 (92) 124/69 (87) 145/68 (93) Pulse Ox 99 98 97 O2 Delivery Room Air Room Air Room Air Room Air Intake and Output 05/24/17 05/24/17 05/25/17 15:00 23:00 07:00 Intake Total 305 ml 1000 ml 360 ml Balance 305 ml 1000 ml 360 ml COLIN WINTER MD May 25, 2017 09:35
[2017-05-25] MEDS ORDERED: LIDOCAINE 2% PF Vial for OR 5 ML VIAL. ONE (10:53)
[2017-05-25] MEDS ORDERED: PROPOFOL 40 ML IV ONE (10:53)
--- NOTE | 2017-05-25 11:30 | PDOC4 ---
Operative Note Operative Note EGD/Colonoscopy with cautery Meds propofol per anesthesia Pre-op dx acute blood loss anemia/hematochezia Post-op dx non-erosive gastritis internal hemorrhoids rectal avms s/p cautery Plan advance diet with release today PO FeSo4 325 mg tid for three months with repeat CBC with pmd in 1 month consider hemorrhoidectomy if no improvement with anemia with above. PING HAZEL MD May 25, 2017 11:30
[2017-05-25 11:46] VITALS: BP 132/69
[2017-05-25] MEDS ORDERED: FERR-26 PO (12:14)
[2017-05-25] MEDS ORDERED: PANT40TA3 PO (12:14)
--- NOTE | 2017-05-25 12:43 | PDOC3 ---
Discharge Summary Visit Information Date of Admission: May 23, 2017 Date of Discharge: May 25, 2017 Admitting Diagnosis Comment: 1. BLoody stools POA, resolved s/p EGD c scope gastritis no active bleed 2. NO evidence diverticulosis on CT 3. ANemia of acute blood loss needing transfusion 4. Microcytic anemia 5. Occ etoh Final Diagnosis Problems Medical Problems: (1) Anemia due to blood loss Status: Acute (2) Lower GI bleed Status: Acute Brief Hospital Course Allergies Allergies Coded Allergies Type Severity Reaction Last Updated Verified No Known Drug Allergies 05/25/17 No Vital Signs Vital Signs Date Time Temp Pulse Resp B/P (MAP) Pulse Ox O2 Delivery O2 Flow Rate FiO2 05/25/17 11:46 97.6 84 20 132/69 98 Room Air 97.6 05/25/17 11:20 2 Lab Results Laboratory Tests Test 05/23/17 19:34 05/24/17 07:15 05/25/17 06:00 White Blood Count 10.3 x10^3/uL (4.0-11.0) 7.1 x10^3/uL (4.0-11.0) Red Blood Count 3.26 x10^6/uL (4.30-5.70) 3.80 x10^6/uL (4.30-5.70) Hemoglobin 6.1 g/dL (13.0-17.5) 7.3 g/dL (13.0-17.5) 8.3 g/dL (13.0-17.5) Hematocrit 18.8 % (39.0-53.0) 23.9 % (39.0-53.0) 26.3 % (39.0-53.0) Mean Corpuscular Volume 58 fL (79-100) 63 fL (79-100) Mean Corpuscular Hemoglobin 19 pg (25-35) 19 pg (25-35) Mean Corpuscular Hemoglobin Concent 32 g/dL (31-37) 31 g/dL (31-37) 32 g/dL (31-37) Red Cell Distribution Width 18.5 % (11.5-14.5) 24.2 % (11.5-14.5) Platelet Count 365 x10^3/uL (140-400) 296 x10^3/uL (140-400) Neutrophils (%) (Auto) 60 % (31-73) 58 % (31-73) Lymphocytes (%) (Auto) 25 % (24-48) 23 % (24-48) Monocytes (%) (Auto) 6 % (0-9) 8 % (0-9) Eosinophils (%) (Auto) 7 % (0-3) 10 % (0-3) Basophils (%) (Auto) 2 % (0-3) 1 % (0-3) Neutrophils # (Auto) 6.2 x10^3uL (1.8-7.7) 4.1 x10^3uL (1.8-7.7) Lymphocytes # (Auto) 2.6 x10^3/uL (1.0-4.8) 1.6 x10^3/uL (1.0-4.8) Monocytes # (Auto) 0.6 x10^3/uL (0.0-1.1) 0.5 x10^3/uL (0.0-1.1) Eosinophils # (Auto) 0.7 x10^3/uL (0.0-0.7) 0.7 x10^3/uL (0.0-0.7) Basophils # (Auto) 0.2 x10^3/uL (0.0-0.2) 0.1 x10^3/uL (0.0-0.2) Platelet Estimate Adequate (ADEQUATE) Polychromasia Mod Hypochromasia Marked Microcytosis Marked Prothrombin Time 13.4 SEC (11.7-14.0) Prothromb Time International Ratio 1.1 (0.8-1.1) Activated Partial Thromboplast Time 22 SEC (24-38) Urine Collection Type Unknown Urine Color Yellow Urine Clarity Clear Urine pH 6.5 Urine Specific [place] <=1.005 Urine Protein Negative mg/dL (NEG-TRACE) Urine Glucose (UA) Negative mg/dL (NEG) Urine Ketones (Stick) Negative mg/dL (NEG) Urine Blood Negative (NEG) Urine Nitrite Negative (NEG) Urine Bilirubin Negative (NEG) Urine Urobilinogen Dipstick 0.2 mg/dL (0.2 mg/dL) Urine Leukocyte Esterase Negative (NEG) Urine RBC 0 /HPF (0-2) Urine WBC 0 /HPF (0-4) Urine Squamous Epithelial Cells Occ /LPF Urine Bacteria 0 /HPF (0-FEW) Sodium Level 137 mmol/L (136-145) 138 mmol/L (136-145) Potassium Level 3.8 mmol/L (3.5-5.1) 4.0 mmol/L (3.5-5.1) Chloride Level 101 mmol/L (98-107) 103 mmol/L (98-107) Carbon Dioxide Level 26 mmol/L (21-32) 29 mmol/L (21-32) Anion Gap 10 (6-14) 6 (6-14) Blood Urea Nitrogen 10 mg/dL (8-26) 9 mg/dL (8-26) Creatinine 0.9 mg/dL (0.7-1.3) 0.9 mg/dL (0.7-1.3) Estimated GFR (Cockcroft-Gault) 100.5 100.5 BUN/Creatinine Ratio 11 (6-20) Glucose Level 127 mg/dL (70-99) 111 mg/dL (70-99) Calcium Level 8.2 mg/dL (8.5-10.1) 8.6 mg/dL (8.5-10.1) Total Bilirubin 0.3 mg/dL (0.2-1.0) Aspartate Amino Transf (AST/SGOT) 24 U/L (15-37) Alanine Aminotransferase (ALT/SGPT) 43 U/L (16-63) Alkaline Phosphatase 114 U/L (46-116) Total Protein 7.9 g/dL (6.4-8.2) Albumin 3.7 g/dL (3.4-5.0) Albumin/Globulin Ratio 0.9 (1.0-1.7) Laboratory Tests Test 05/25/17 06:00 Hemoglobin 8.3 g/dL (13.0-17.5) Hematocrit 26.3 % (39.0-53.0) Mean Corpuscular Hemoglobin Concent 32 g/dL (31-37) Brief Hospital Course Mr. Tinsley is a 26 old male comes in for LGIB, HGb 6 sabi dmit, Got 2 pRBC, HGb 8 on dc. C scoep egd done showed gastritis no active bleed. Not on NSAIDs or ASA at home, Advised ferrous sulfate and PPI,. Rx called in by PETERSON Pettit 2 notes today Pt seen and examined Discharge Information Condition at Discharge: Improved, Stable Disposition/Orders: D/C to Home Scheduled Ferrous Sulfate (Ferrous Sulfate), 325 MG PO DAILY, (Reported) Pantoprazole Sodium (Protonix), 40 MG PO DAILY, (Reported) COLIN WINTER MD May 25, 2017 12:43
== END 2017-05-25 13:49 | disposition home or self-care (01) | DRG 378 ==
LOC: ER 19:22 → 5 SOUTH 20:10
PROVIDERS: ADMIT Internal Medicine; ATTEND Internal Medicine
PROC: 0W3P8ZZ Control Bleeding in Gastrointestinal Tract, Via Natural or Artificial Opening Endoscopic (ICD-10-PCS; principal; 2017-05-23)
PROC: 30233N1 Transfusion of Nonautologous Red Blood Cells into Peripheral Vein, Percutaneous Approach (ICD-10-PCS; 2017-05-23)
PROC: 0DJ08ZZ Inspection of Upper Intestinal Tract, Via Natural or Artificial Opening Endoscopic (ICD-10-PCS; 2017-05-23)
DX: K92.2 Gastrointestinal hemorrhage, unspecified (principal); D62 Acute posthemorrhagic anemia; K29.70 Gastritis, unspecified, without bleeding; K64.9 Unspecified hemorrhoids; D50.0 Iron deficiency anemia secondary to blood loss (chronic); K64.8 Other hemorrhoids; Q27.33 Arteriovenous malformation of digestive system vessel
CPT/HCPCS: 36415; 74177; 80048; 80053; 81001; 85007; 85014; 85018; 85027; 85610; 85730; 86850; 86900; 86901; 86920; 93005; 96360; J2704; J7030; J7040; P9016; S0028; 99285-25; J2001